=== PATIENT | female | born 1960 | race Hispanic/Latino ===

== ENCOUNTER 2017-12-20 17:46 | Inpatient (IN) | payer OTHER ==
[~2017-12-20] VITALS: Ht 149.9 cm; Wt 90.0 kg
[2017-12-20] MEDS ORDERED: ASPIRIN 81 MG CHEW TAB PO STA (17:53)
[2017-12-20] MEDS ORDERED: SODIUM CHLORIDE FLUSH 10 ML SYR INJ PRN ×2 (18:00→18:45)
[2017-12-20] MEDS ORDERED: NITROGLYCERIN 2% OINT 1 GM PKT TOP STA (18:03)
[2017-12-20] MEDS ORDERED: LISINOPRIL10 MG PO (18:41)
[2017-12-20] MEDS ORDERED: FOSAMAX70 MG (18:41)
[2017-12-20] MEDS ORDERED: ONDANSETRON HCL INJ 2 MG/ML VIAL IV PRN (18:45)
[2017-12-20] MEDS ORDERED: ASPIRIN 81 MG CHEW TAB PO ONE (18:45)
[2017-12-20] MEDS ORDERED: MORPHINE SULFATE 2 MG/ML SYR IV PRN (18:45)
[2017-12-20 21:00] VITALS: BP 183/97
[2017-12-20 21:44] VITALS: BP 183/97
[2017-12-20 23:59] VITALS: BP 136/76
[2017-12-21] VITALS (8 sets, daily range): BP systolic 120–159; BP diastolic 68–90
[2017-12-21] MEDS: NITROGLYCERIN 2% OINT 1 GM PKT TOP SCH ×4 (00:32→17:08)
[2017-12-21 05:50] LABS: CHOL/HDL RATIO 2.8 (3.0-3.6); CHOLESTEROL 139 MD/DL (0-199); CREATINE KINASE 26 IU/L (29-168); HDL CHOLESTEROL 49 MG/DL (40-60); LDL CHOLESTEROL 76 MG/DL (60-130); TRIGLYCERIDES 72 MG/DL (0-149)
[2017-12-21] MEDS: ASPIRIN 81 MG ENTERIC COATED PO SCH (08:49)
[2017-12-21 09:31] LABS: BASOPHILS # (AUTO) 0.1 (0.0-0.1); BASOPHILS % 0.8 % (0.0-1.0); EOSINOPHILS # (AUTO) 0.5 (0.0-0.4); EOSINOPHILS % 5.6 % (0.0-6.0); HEMOGLOBIN 13.3 g/dL (12.0-16.0); LYMPHOCYTES # (AUTO) 2.6 (1.0-3.2); LYMPHOCYTES % 27.8 % (18.0-39.1); MEAN CORPUSCULAR HGB CONC 34.1 g/dL (31-35); MONOCYTES # (AUTO) 0.7 (0.2-0.8); NEUTROPHILS # (AUTO) 5.3 (2.1-6.9); NEUTROPHILS % 57.4 % (38.7-80.0); PLATELET COUNT 192 x10e3/uL (140-360); RED BLOOD COUNT 4.15 x10e6/uL (3.6-5.1)
[2017-12-21 09:43] LABS: ANION GAP 12.8 mmol/L (8-16); BLOOD UREA NITROGEN 14 mg/dL (7-26); BUN/CREATININE RATIO 19 (6-25); CALCIUM 9.8 mg/dL (8.4-10.2); CARBON DIOXIDE 25 mmol/L (22-29); CHLORIDE 107 mmol/L (98-107); CREATININE, SERUM 0.72 mg/dL (0.57-1.11); EST GLOMERULAR FILTRATION RATE > 60 ML/MIN (60-); GLUCOSE 103 mg/dL (74-118); MAGNESIUM 1.9 MG/DL (1.3-2.1); POTASSIUM 3.8 mmol/L (3.5-5.1); SODIUM 141 mmol/L (136-145)
[2017-12-21] MEDS ORDERED: HYDROCHLOROTH12.5 MG PO (09:53)
[2017-12-21] MEDS ORDERED: HYDRALAZINE HCL 20 MG/ML VIAL IV PRN (10:00)
[2017-12-21] MEDS ORDERED: ONDANSETRON HCL INJ 2 MG/ML VIAL IV PRN (10:00)
[2017-12-21] MEDS: ENOXAPARIN SOD INJ 40 MG/0.4 ML SYR SC SCH (10:38)
[2017-12-21] MEDS: ACETAMINOPHEN 325 MG TAB PO PRN ×2 (10:55→23:10)
[2017-12-21] MEDS ORDERED: REGADENOSON 0.4 MG/5 ML SYR IV ONE (11:35)
--- NOTE | 2017-12-21 11:59 | Consultation ---
DATE OF CONSULTATION: CARDIOLOGY CONSULTATION CHIEF COMPLAINT: The patient is a 57-year-old with chest pain. HISTORY OF PRESENT ILLNESS: The patient is a 57-year-old who experienced some chest pain yesterday, was sharp in nature and then moved into the epigastric area. The patient decided to come to the emergency room and was subsequently admitted for observation. PAST MEDICAL HISTORY: Significant for hypertension and osteoporosis. PATIENT'S MEDICATIONS AT HOME: Include Fosamax, hydrochlorothiazide, and lisinopril. SOCIAL HISTORY: The patient does not drink and does not smoke. FAMILY HISTORY: There is a known family history of coronary artery disease. PHYSICAL EXAMINATION GENERAL: The patient is a well-developed, well-nourished female, in no obvious distress. VITAL SIGNS: Included temperature 95.6, pulse of 60, and blood pressure 120/60. HEAD, EARS, EYES, NOSE AND THROAT: The patient's cranium was normocephalic and atraumatic. Extraocular muscles were intact. Sclerae were anicteric. Pupils were equal, round and reactive to light. There was no pallor or cyanosis of the oral mucosa. There was no erythema or edema of the throat. NECK: Supple. No jugular venous distention. No carotid bruit. CHEST: Clear to auscultation and percussion. CARDIAC: Demonstrated normal S1 and S2 with a short 2/6 systolic murmur. ABDOMEN: Demonstrated good bowel sounds. No tenderness. No masses. EXTREMITIES: There is no clubbing, no cyanosis, and no edema. NEUROLOGIC: The patient was alert and oriented x3. Cranial nerves II through XII were intact. Motor strength was +5/+5 in all limbs. The patient's EKG demonstrated normal sinus rhythm with some nonspecific ST and T-wave changes. IMPRESSION: The patient is a 57-year-old with atypical chest pain. The patient's cardiac enzymes are negative. Arrangements had been made for a Lexiscan, nuclear stress test, and echocardiogram to be done to exclude ischemia. Job#: [id number] MAURIZIO cc: Dr. Jalloh
[2017-12-21] MEDS: LISINOPRIL 20 MG TAB PO SCH (14:01)
[2017-12-21 15:59] LABS: CREATINE KINASE 33 IU/L (29-168)
--- NOTE | 2017-12-21 16:14 | Cardiology Report ---
DATE OF STUDY: LEXISCAN NUCLEAR STRESS TEST INDICATION: Chest pain. TECHNIQUE: The patient was given 11 millicuries of Myoview. Resting images were obtained in the horizontal long axis, vertical long axis and short axis. The patient was then hooked up to the EKG machine. Lexiscan was infused over 15 seconds. During Lexiscan infusion, the patient had no chest pain and no EKG changes. The patient was given 32 millicuries of Myoview immediately after completion of the Lexiscan infusion. Stress images were obtained 30 minutes later in the horizontal long axis, the vertical long axis and short axis. RESULTS: 1. The resting EKG demonstrated normal sinus rhythm with some nonspecific ST and T wave changes. 2. There were no EKG changes and no symptoms during Lexiscan infusion. 3. There was normal perfusion to all segments of the myocardium on the resting image. 4. There was diminished perfusion in the anterior wall and anterolateral wall on the stress images consistent with a reversible defect. 5. There was normal left ventricular size and function with an ejection fraction of 70%. CONCLUSION: There is a reversible defect in the anterior and lateral back which could represent myocardial ischemia. It could also represent artefact from breast attenuation. Job#: [id number] EV cc:ISABEL ZARAGOZA MD
[2017-12-21] MEDS: FAMOTIDINE 20 MG/2 ML VIAL IV SCH (17:08)
[2017-12-22] VITALS (7 sets, daily range): BP systolic 105–154; BP diastolic 58–84
[2017-12-22 00:40] LABS: CREATINE KINASE 39 IU/L (29-168)
[2017-12-22] MEDS: NITROGLYCERIN 2% OINT 1 GM PKT TOP SCH ×4 (00:59→17:54)
[2017-12-22 04:38] LABS: BASOPHILS # (AUTO) 0.1 (0.0-0.1); BASOPHILS % 0.5 % (0.0-1.0); EOSINOPHILS # (AUTO) 0.5 (0.0-0.4); EOSINOPHILS % 4.9 % (0.0-6.0); HEMATOCRIT 38.8 % (34.2-44.1); HEMOGLOBIN 13.3 g/dL (12.0-16.0); LYMPHOCYTES # (AUTO) 2.3 (1.0-3.2); LYMPHOCYTES % 24.5 % (18.0-39.1); MEAN CORPUSCULAR HEMOGLOBIN 32.2 pg (28-32); MEAN CORPUSCULAR HGB CONC 34.3 g/dL (31-35); MEAN CORPUSCULAR VOLUME 93.9 fL (81-99); MONOCYTES # (AUTO) 0.8 (0.2-0.8); MONOCYTES % 8.4 % (4.4-11.3); NEUTROPHILS # (AUTO) 5.9 (2.1-6.9); NEUTROPHILS % 61.3 % (38.7-80.0); PLATELET COUNT 195 x10e3/uL (140-360); RED BLOOD COUNT 4.13 x10e6/uL (3.6-5.1); RED CELL DISTRIBUTION WIDTH 12.9 % (11.7-14.4)
[2017-12-22 04:58] LABS: ANION GAP 10.4 mmol/L (8-16); BLOOD UREA NITROGEN 23 mg/dL (7-26); BUN/CREATININE RATIO 29 (6-25); CALCIUM 8.6 mg/dL (8.4-10.2); CARBON DIOXIDE 27 mmol/L (22-29); CHLORIDE 107 mmol/L (98-107); CREATININE, SERUM 0.79 mg/dL (0.57-1.11); EST GLOMERULAR FILTRATION RATE > 60 ML/MIN (60-); GLUCOSE 109 mg/dL (74-118); POTASSIUM 3.4 mmol/L (3.5-5.1); SODIUM 141 mmol/L (136-145)
[2017-12-22] MEDS: ASPIRIN 81 MG ENTERIC COATED PO SCH (08:30)
[2017-12-22] MEDS: LISINOPRIL 20 MG TAB PO SCH (08:30)
[2017-12-22] MEDS: ENOXAPARIN SOD INJ 40 MG/0.4 ML SYR SC SCH (08:30)
[2017-12-22] MEDS: FAMOTIDINE 20 MG/2 ML VIAL IV SCH ×2 (08:30→17:54)
[2017-12-22] MEDS ORDERED: LISINOPRIL 10 MG TAB PO SCH (09:00)
[2017-12-22] MEDS ORDERED: POTASSIUM CHLORIDE 20 MEQ TAB CR PO ONE (10:45)
[2017-12-22] MEDS: ACETAMINOPHEN 325 MG TAB PO PRN ×2 (15:30→21:54)
[2017-12-23] VITALS: BP 118/60
[2017-12-23 04:00] VITALS: BP 104/64
[2017-12-23 05:18] LABS: BASOPHILS # (AUTO) 0.1 (0.0-0.1); BASOPHILS % 0.6 % (0.0-1.0); NEUTROPHILS % 50.4 % (38.7-80.0)
[2017-12-23 05:52] LABS: ANION GAP 11.8 mmol/L (8-16); BLOOD UREA NITROGEN 23 mg/dL (7-26); BUN/CREATININE RATIO 31 (6-25); CALCIUM 8.6 mg/dL (8.4-10.2); CARBON DIOXIDE 24 mmol/L (22-29); CHLORIDE 106 mmol/L (98-107); CREATININE, SERUM 0.74 mg/dL (0.57-1.11); EST GLOMERULAR FILTRATION RATE > 60 ML/MIN (60-); GLUCOSE 103 mg/dL (74-118); MAGNESIUM 2.1 MG/DL (1.3-2.1); POTASSIUM 3.8 mmol/L (3.5-5.1); SODIUM 138 mmol/L (136-145)
[2017-12-23] MEDS: NITROGLYCERIN 2% OINT 1 GM PKT TOP SCH ×4 (06:00→18:11)
[2017-12-23 06:40] LABS: EOSINOPHILS # (AUTO) 0.5 (0.0-0.4); EOSINOPHILS % 5.5 % (0.0-6.0); HEMATOCRIT 39.2 % (34.2-44.1); HEMOGLOBIN 13.3 g/dL (12.0-16.0); LYMPHOCYTES % 34.9 % (18.0-39.1); MEAN CORPUSCULAR HEMOGLOBIN 32.2 pg (28-32); MEAN CORPUSCULAR HGB CONC 33.9 g/dL (31-35); MEAN CORPUSCULAR VOLUME 94.9 fL (81-99); MONOCYTES # (AUTO) 0.7 (0.2-0.8); MONOCYTES % 8.1 % (4.4-11.3); NEUTROPHILS # (AUTO) 4.3 (2.1-6.9); PLATELET COUNT 201 x10e3/uL (140-360); RED BLOOD COUNT 4.13 x10e6/uL (3.6-5.1)
[2017-12-23 08:00] VITALS: BP 127/85
[2017-12-23] MEDS: LISINOPRIL 20 MG TAB PO SCH (08:26)
[2017-12-23] MEDS: ENOXAPARIN SOD INJ 40 MG/0.4 ML SYR SC SCH (08:26)
[2017-12-23] MEDS: FAMOTIDINE 20 MG/2 ML VIAL IV SCH ×2 (08:26→18:10)
[2017-12-23] MEDS: ASPIRIN 81 MG ENTERIC COATED PO SCH (08:26)
[2017-12-23] MEDS: ACETAMINOPHEN 325 MG TAB PO PRN ×2 (08:26→18:00)
[2017-12-23 12:00] VITALS: BP 124/80
[2017-12-23 16:00] VITALS: BP 125/75
[2017-12-23 20:00] VITALS: BP 141/81
[2017-12-24] VITALS (12 sets, daily range): BP systolic 124–168; BP diastolic 64–87
[2017-12-24] MEDS: NITROGLYCERIN 2% OINT 1 GM PKT TOP SCH ×4 (00:43→18:39)
[2017-12-24 04:02] LABS: BASOPHILS # (AUTO) 0.1 (0.0-0.1); BASOPHILS % 0.6 % (0.0-1.0); EOSINOPHILS # (AUTO) 0.5 (0.0-0.4); EOSINOPHILS % 5.3 % (0.0-6.0); HEMATOCRIT 40.9 % (34.2-44.1); HEMOGLOBIN 13.9 g/dL (12.0-16.0); LYMPHOCYTES # (AUTO) 2.9 (1.0-3.2); LYMPHOCYTES % 33.3 % (18.0-39.1); MEAN CORPUSCULAR HEMOGLOBIN 31.9 pg (28-32); MEAN CORPUSCULAR VOLUME 93.8 fL (81-99); MONOCYTES # (AUTO) 0.6 (0.2-0.8); MONOCYTES % 6.6 % (4.4-11.3); NEUTROPHILS # (AUTO) 4.6 (2.1-6.9); NEUTROPHILS % 53.9 % (38.7-80.0); PLATELET COUNT 181 x10e3/uL (140-360); RED BLOOD COUNT 4.36 x10e6/uL (3.6-5.1); RED CELL DISTRIBUTION WIDTH 12.7 % (11.7-14.4)
[2017-12-24 04:13] LABS: ANION GAP 13.1 mmol/L (8-16); BLOOD UREA NITROGEN 20 mg/dL (7-26); BUN/CREATININE RATIO 27 (6-25); CALCIUM 8.6 mg/dL (8.4-10.2); CARBON DIOXIDE 23 mmol/L (22-29); CHLORIDE 108 mmol/L (98-107); CREATININE, SERUM 0.73 mg/dL (0.57-1.11); EST GLOMERULAR FILTRATION RATE > 60 ML/MIN (60-); GLUCOSE 96 mg/dL (74-118); MAGNESIUM 2.2 MG/DL (1.3-2.1); POTASSIUM 4.1 mmol/L (3.5-5.1); SODIUM 140 mmol/L (136-145)
[2017-12-24] MEDS: ASPIRIN 81 MG ENTERIC COATED PO SCH (09:00)
[2017-12-24] MEDS: ENOXAPARIN SOD INJ 40 MG/0.4 ML SYR SC SCH (09:00)
[2017-12-24] MEDS: FAMOTIDINE 20 MG/2 ML VIAL IV SCH ×2 (09:46→17:07)
[2017-12-24] MEDS ORDERED: IOPAMIDOL 370 MG/ML 200 ML INFUS..BTL INJ ONE (11:55)
[2017-12-24] MEDS ORDERED: LIDOCAINE HCL 2% LOCAL 20 ML VIAL ONE (11:55)
[2017-12-24] MEDS ORDERED: HEPARIN SOD/SOD CHLORIDE 2,000 ML ONE (11:55)
[2017-12-24] MEDS ORDERED: FENTANYL CITRATE/PF 100MCG/2 ML INJ ONE (12:33)
[2017-12-24] MEDS ORDERED: SODIUM CHLORIDE 0.9% 1000ML 1,000 ML ONE (12:33)
[2017-12-24] MEDS ORDERED: MIDAZOLAM HCL 2 MG/2 ML VIAL ONE (12:33)
[2017-12-24] MEDS ORDERED: ATROPINE SULFATE 0.1 MG/ML 10ML SYR ONE (13:04)
--- NOTE | 2017-12-24 13:47 | Operative Report ---
DATE OF PROCEDURE: PROCEDURES PERFORMED 1. Left heart catheterization. 2. Selective coronary angiogram. 3. Left ventriculogram. INDICATIONS: Chest pain and abnormal stress test. DESCRIPTION OF PROCEDURE: After informed consent, the patient was brought to the cardiac catheterization laboratory and placed on the table. Both groins were painted and draped in a sterile fashion. Lidocaine was injected in the right groin for local anesthesia. Right femoral artery was accessed by Seldinger technique, and a 5-Comoran sheath was placed on the right femoral artery. Left main artery was cannulated using a JL4 5-Comoran catheter. Coronary angiogram was performed and images obtained in multiple views. The right coronary artery was cannulated using a 3DRC 5-Comoran catheter. Coronary angiogram was performed and images obtained in multiple views. LV-gram was performed using a pigtail catheter. Patient tolerated the procedure without any complications. REPORT LEFT MAIN: Normal caliber. No significant stenosis. LEFT ANTERIOR DESCENDING: Normal caliber. No significant stenosis. RIGHT CORONARY ARTERY: Normal caliber and no significant stenosis. The posterior descending artery has some luminal irregularities. LV-GRAM: Normal LV function. Overall ejection fraction about 70%. HEMODYNAMICS: Aortic pressure is 151/64. LV pressure is 146/12. LVEDP is 22. PLAN: Medical management. Job#: [id number] KASSANDRA
[2017-12-24] MEDS: ACETAMINOPHEN 325 MG TAB PO PRN (16:30)
[2017-12-24] MEDS: LISINOPRIL 20 MG TAB PO SCH (16:30)
[2017-12-25] VITALS: BP 149/63
[2017-12-25] MEDS: NITROGLYCERIN 2% OINT 1 GM PKT TOP SCH ×2 (00:20→06:00)
[2017-12-25 04:00] VITALS: BP 126/69
[2017-12-25 05:50] LABS: BASOPHILS # (AUTO) 0.1 (0.0-0.1); BASOPHILS % 0.6 % (0.0-1.0); EOSINOPHILS # (AUTO) 0.2 (0.0-0.4); EOSINOPHILS % 1.8 % (0.0-6.0); HEMATOCRIT 40.8 % (34.2-44.1); HEMOGLOBIN 13.7 g/dL (12.0-16.0); LYMPHOCYTES # (AUTO) 2.6 (1.0-3.2); LYMPHOCYTES % 30.7 % (18.0-39.1); MEAN CORPUSCULAR HEMOGLOBIN 31.9 pg (28-32); MEAN CORPUSCULAR HGB CONC 33.6 g/dL (31-35); MEAN CORPUSCULAR VOLUME 94.9 fL (81-99); MONOCYTES # (AUTO) 0.6 (0.2-0.8); MONOCYTES % 7.3 % (4.4-11.3); NEUTROPHILS % 59.1 % (38.7-80.0); PLATELET COUNT 190 x10e3/uL (140-360); RED CELL DISTRIBUTION WIDTH 13.1 % (11.7-14.4)
[2017-12-25 06:15] LABS: ANION GAP 11.8 mmol/L (8-16); BLOOD UREA NITROGEN 16 mg/dL (7-26); BUN/CREATININE RATIO 25 (6-25); CALCIUM 8.6 mg/dL (8.4-10.2); CARBON DIOXIDE 23 mmol/L (22-29); CHLORIDE 108 mmol/L (98-107); CREATININE, SERUM 0.65 mg/dL (0.57-1.11); EST GLOMERULAR FILTRATION RATE > 60 ML/MIN (60-); GLUCOSE 87 mg/dL (74-118); MAGNESIUM 2.6 MG/DL (1.3-2.1); POTASSIUM 3.8 mmol/L (3.5-5.1); SODIUM 139 mmol/L (136-145)
[2017-12-25 07:05] VITALS: BP 140/68
[2017-12-25 07:42] VITALS: BP 140/68
[2017-12-25] MEDS: ENOXAPARIN SOD INJ 40 MG/0.4 ML SYR SC SCH (08:21)
[2017-12-25] MEDS ORDERED: ASPIRIN EC81 MG PO (09:02)
[2017-12-25] MEDS: FAMOTIDINE 20 MG/2 ML VIAL IV SCH (09:22)
[2017-12-25] MEDS: LISINOPRIL 20 MG TAB PO SCH (09:22)
[2017-12-25] MEDS: ASPIRIN 81 MG ENTERIC COATED PO SCH (09:22)
[2017-12-25] MEDS ORDERED: FAMOTIDINE 20 MG TAB PO SCH (16:30)
--- NOTE | 2017-12-26 13:59 | Discharge Summary ---
ADMISSION DIAGNOSES 1. Chest pain. 2. Hypertension. 3. Obesity. 4. Bradycardia. DISCHARGE DIAGNOSES 1. Chest pain. 2. Hypertension. 3. Obesity. 4. Bradycardia. 5. Ruled out acute coronary syndrome. HISTORY: Patient has a history of osteoporosis, hypertension and arthritis, surgical history of x3, incisional hernia repair from a previous cholecystectomy. HOSPITAL COURSE: A 57-year-old female complains of shortness of breath that began Sunday night. Then the next day she complained of sharp stabbing pain in her left chest that radiated to her jaw and back. The sharp pain lasted 1 to 2 minutes, then became an intermittent ache. 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 She denies recent illness, stress, nausea and vomiting. On admission troponins were negative x3. EKG was normal sinus, chest x-ray negative. Nitroglycerin was given, which helped with the pain. Patient had a stress test that showed a reversible defect in the anterior and lateral wall, which could represent WI. She then had a heart cath that showed an EF of 70%. Left main showed no stenosis. Left anterior descending showed no stenosis, normal caliber. Right coronary showed no significant stenosis. The posterior descending had some luminal irregularities. Per Cardiology, medical management. Patient will be discharged home and will start aspirin daily. Lipids were within normal limits. Blood pressure controlled on lisinopril and hydrochlorothiazide. Patient will discharge home and follow up with Dr. Rodríguez next week. Patient and daughter understand discharge instructions and followups and agree to plan. Dictated by: Nano Sauer NP ISABEL ZARAGOZA MD Job#: [id number] EV
== END 2017-12-25 10:04 | disposition home or self-care (01) | DRG 287 ==
LOC: FSED 17:46 → OBSVTOIN 18:43 → ERHOLD 18:43 → INTOOBSV 18:43 → IMCU 20:52 → OBSVTOIN 12-21 16:07 → MED/SURG3 12-21 20:01
PROVIDERS: ADMIT Internal Medicine; ATTEND Internal Medicine
PROC: 4A023N7 Measurement of Cardiac Sampling and Pressure, Left Heart, Percutaneous Approach (ICD-10-PCS; principal; 2017-12-24)
PROC: B2111ZZ Fluoroscopy of Multiple Coronary Arteries using Low Osmolar Contrast (ICD-10-PCS; 2017-12-24)
PROC: B2151ZZ Fluoroscopy of Left Heart using Low Osmolar Contrast (ICD-10-PCS; 2017-12-24)
DX: R07.89 Other chest pain (principal); Z68.41 Body mass index [BMI] 40.0-44.9, adult; E66.01 Morbid (severe) obesity due to excess calories; R00.1 Bradycardia, unspecified; I10 Essential (primary) hypertension; M81.0 Age-related osteoporosis without current pathological fracture; E83.42 Hypomagnesemia; R94.39 Abnormal result of other cardiovascular function study
CPT/HCPCS: 36415; 71046; 78452; 80048; 80053; 80061; 82550; 82553; 82948; 83036; 83735; 83880; 84484; 85025; 85379; 93005; 93017; 93306; 93458; 99284; A9502; G0378; J0360; J1650; J2001; J2250; J2270; J2405; J7030; Q9967